=== PATIENT | female | born 1970 | race Asian ===

== ENCOUNTER 2019-03-29 17:47 | Emergency (ER) | payer BC ==
[~2019-03-29] VITALS: Ht 160 cm; Wt 77.1 kg
[2019-03-29 17:55] VITALS: BP_SYST 140
[2019-03-29] MEDS ORDERED: KETOROLAC TROMETHAMINE 30 MG VIAL IM ONE (20:00)
[2019-03-29] MEDS ORDERED: CYCLOBENZAPRINE HCL 10 MG TABLET (FLEXERIL) PO ONE (20:00)
[2019-03-29 20:57] VITALS: BP_SYST 140
== END 2019-03-29 20:58 | disposition home or self-care (01) ==
LOC: SED 17:47
DX: S16.1XXA Strain of muscle, fascia and tendon at neck level, initial encounter (principal); S39.012A Strain of muscle, fascia and tendon of lower back, initial encounter; S29.012A Strain of muscle and tendon of back wall of thorax, initial encounter; R03.0 Elevated blood-pressure reading, without diagnosis of hypertension; V43.52XA Car driver injured in collision with other type car in traffic accident, initial encounter; Y93.89 Activity, other specified; Y92.411 Interstate highway as the place of occurrence of the external cause; Y99.8 Other external cause status
CPT/HCPCS: 72040; 81002; 81025; 96372; 99283; J1885

== ENCOUNTER 2019-04-01 15:14 | Emergency (ER) | payer BC ==
[~2019-04-01] VITALS: Ht 162.6 cm; Wt 77.1 kg
[2019-04-01 15:22] VITALS: BP_SYST 159
--- NOTE | 2019-04-01 15:55 | NUR ---
Patient to ER [facility] for evaluation.
--- NOTE | 2019-04-01 15:57 | NUR ---
ER Dr. Oliveira at bedside examining patient.
--- NOTE | 2019-04-01 16:10 | NUR ---
Patient given written and verbal discharge instructions and verbalizes understanding. ER MD discussed with patient the results and treatment provided. Patient in stable condition. ID arm band removed. Rx of Prednisone, Atarax given. Patient educated on pain management and to follow up with PMD. Pain Scale 0/10. Opportunity for questions provided and answered. Medication side effect fact sheet provided.
== END 2019-04-01 16:13 | disposition home or self-care (01) ==
LOC: SED 15:14
DX: L25.8 Unspecified contact dermatitis due to other agents (principal); R03.0 Elevated blood-pressure reading, without diagnosis of hypertension
CPT/HCPCS: 99283

== ENCOUNTER 2019-05-20 14:30 | Emergency (ER) | payer BC ==
[~2019-05-20] VITALS: Ht 162.6 cm; Wt 81.6 kg
[2019-05-20 14:35] VITALS: BP_SYST 140
[2019-05-20] MEDS ORDERED: PREDNISONE 20 MG TABLET PO ONE (15:00)
[2019-05-20] MEDS ORDERED: FAMOTIDINE 20 MG TABLET PO ONE (15:00)
[2019-05-20 15:15] VITALS: BP_SYST 140
== END 2019-05-20 15:15 | disposition home or self-care (01) ==
LOC: SED 14:30
DX: R21 Rash and other nonspecific skin eruption (principal); R03.0 Elevated blood-pressure reading, without diagnosis of hypertension
CPT/HCPCS: 99283; J7512